=== PATIENT | female | born 1970 | race Hispanic/Latino ===

== ENCOUNTER 2023-11-03 15:38 | Emergency (ER) | payer BC ==
--- NOTE | 2023-11-03 17:19 | EDPHYS ---
Physician Documentation [facility] Name: Alia Benoit Age: 53 yrs Sex: Female : 1970 Arrival Date: 11/03/2023 Time: 15:38 Bed 10 Private MD: ED Physician Sacha Molina HPI: 11/02 17:12 This 53 yrs old Female presents to ER via Ambulatory with complaints of Ear rn Pain. 17:12 The patient presents with pain. rn 17:13 Onset: The symptoms/episode began/occurred today. rn 17:13 Severity of symptoms: At their worst the symptoms were mild in the emergency department rn the symptoms are unchanged. The patient has not experienced similar symptoms in the past. The patient has not recently seen a physician. 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 - Infectious Disease History:: Denies. - Social history:: Smoking status: Patient denies any tobacco usage or history of. - Family history:: not pertinent. - Hospitalizations: : No recent hospitalization is reported. ROS: 17:13 Constitutional: Negative for fever, chills, and weight loss, ENT: Positive for right rn ear pain, sore throat Cardiovascular: Negative for chest pain, palpitations, and edema, Respiratory: Positive for cough Abdomen/GI: Negative for abdominal pain, nausea, vomiting, diarrhea, and constipation, MS/Extremity: Negative for injury and deformity, Skin: Negative for injury, rash, and discoloration, Neuro: Negative for headache, weakness, numbness, tingling, and seizure, Exam: 17:13 Constitutional: This is a well developed, well nourished patient who is awake, alert, rn and in no acute distress. ENT: Mild pharyngeal erythema, no exudate. Normal TM bilaterally Neck: Nontender cervical lymphadenopathy present. No meningismus Respiratory: Lungs have equal breath sounds bilaterally, clear to auscultation and percussion. No rales, rhonchi or wheezes noted. No increased work of breathing, no retractions or nasal flaring. Vital Signs: 15:47 BP 141 / 80; Pulse 69; Resp 16 S; Temp 99(O); Pulse Ox 96% on R/A; Weight 63.5 kg (R); kc6 Height 4 ft. 10 in. (R); Pain 4/10; 15:47 Body Mass Index 29.26 (63.50 kg, 147.32 cm) [facility] 15:47 Pain Scale: Adult kc6 MDM: 15:52 Patient medically screened. rn 17:13 Differential diagnosis: otitis media, foreign body, acute otalgia. Data reviewed: vital rn signs, nurses notes, and as a result, I will discharge patient. Counseling: I had a detailed discussion with the patient and/or guardian regarding the historical points, exam findings, and any diagnostic results supporting the discharge/admit diagnosis, the need for outpatient follow up, to return to the emergency department if symptoms worsen or persist or if there are any questions or concerns that arise at home. Special discussion: I discussed with the patient/guardian in detail that at this point there is no indication for admission to the hospital. It is understood, however, that if the symptoms persist or worsen the patient needs to return immediately for re-evaluation. 17:18 Differential diagnosis: Viral illness, pharyngitis, COVID, flu. rn Administered Medications: No medications were administered Disposition Summary: 11/03/23 17:18 Discharge Ordered Notes: Location: Home rn Problem: new rn Symptoms: have improved rn Condition: Stable rn Diagnosis - Otalgia, right ear rn Followup: rn - With: Private Physician - When: As needed - Reason: Recheck today's complaints, Re-evaluation by your physician Discharge Instructions: - Discharge Summary Sheet rn - Pharyngitis rn Forms: - Medication Reconciliation Form rn - Antibiotic advertising internship - Prescription Opioid Use rn - Patient Portal Instructions rn - Leadership Thank You Letter rn Prescriptions: - Zithromax Z-Won 250 mg Oral Tablet - take 1 tablet ORAL route as directed for 5 days Day 1 - take two (2) tablets rn one time. Day 2, 3, 4 , 5 take one (1) tablet once daily.; 6 tablet; Refills: 0, Product Selection Permitted Signatures: Sacha Molina MD MD rn Campbell, Kaitlyn, RN RN kcArron Corrections: (The following items were deleted from the chart) 15:50 15:48 Allergies: No Known Allergies; kcArron kc6 17:16 17:13 Constitutional: Negative for fever, chills, and weight loss, ENT: Positive for rn right ear pain, sore throat rn
--- NOTE | 2023-11-03 17:19 | ER ---
Nurse's Notes [facility] Name: Alia Benoit Age: 53 yrs Sex: Female : 1970 Arrival Date: 11/03/2023 Time: 15:38 Bed 10 Private MD: Diagnosis: Otalgia, right ear Presentation: 11/02 15:47 Chief complaint: Patient states: right ear and throat pain that started today. states, kc6 "I feel like I'm getting a cold.". Coronavirus screen: At this time, the client does not indicate any symptoms associated with coronavirus-19. Ebola Screen: No symptoms or risks identified at this time. Initial Sepsis Screen: Does the patient meet any 2 criteria? No. Patient's initial sepsis screen is negative. Does the patient have a suspected source of infection? No. Patient's initial sepsis screen is negative. Risk Assessment: Do you want to hurt yourself or someone else? Patient reports no desire to harm self or others. Onset of symptoms was November 03, 2023. 15:47 Method Of Arrival: Ambulatory [facility] 15:47 Acuity: TODD 4 6 Triage Assessment: 15:48 General: Appears in no apparent distress. comfortable, well groomed, well developed, kc6 Behavior is calm, cooperative, appropriate for age. EENT: Reports pain in right ear when swallowing. Neuro: Level of Consciousness is awake, alert, obeys commands, Oriented to person, place, time, situation, Appropriate for age. Respiratory: Airway is patent Trachea midline Respiratory effort is even, unlabored, Respiratory pattern is regular, symmetrical. 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 - Infectious Disease History:: Denies. - Social history:: Smoking status: Patient denies any tobacco usage or history of. - Family history:: not pertinent. - Hospitalizations: : No recent hospitalization is reported. Screenin:48 [facility] ED Fall Risk Assessment (Adult) History of falling in the last 3 months, kc6 including since admission No falls in past 3 months (0 pts) Confusion or Disorientation No (0 pts) Intoxicated or Sedated No (0 pts) Impaired Gait No (0 pts) Mobility Assist Device Used No (0 pt) Altered Elimination No (0 pt) Score/Fall Risk Level 0 - 2 = Low Risk. Abuse screen: Denies threats or abuse. Denies injuries from another. Nutritional screening: No deficits noted. Tuberculosis screening: No symptoms or risk factors identified. Assessment: 15:48 Reassessment: please see triage. kc6 16:50 Reassessment: Patient appears in no apparent distress at this time. No changes from [facility] previously documented assessment. Patient and/or family updated on plan of care and expected duration. Pain level reassessed. Patient is alert, oriented x 3, equal unlabored respirations, skin warm/dry/pink. Vital Signs: 15:47 BP 141 / 80; Pulse 69; Resp 16 S; Temp 99(O); Pulse Ox 96% on R/A; Weight 63.5 kg (R); kc6 Height 4 ft. 10 in. (R); Pain 4/10; 15:47 Body Mass Index 29.26 (63.50 kg, 147.32 cm) [facility] 15:47 Pain Scale: Adult kc ED Course: 15:42 Patient arrived in ED. im 15:48 Triage completed. 6 15:48 Arm band placed on. [facility] 15:48 Patient has correct armband on for positive identification. Bed in low position. Call [facility] light in reach. Side rails up X 1. Adult w/ patient. Pulse ox on. NIBP on. Pillow given. 15:52 Sacha Molina MD is Attending Physician. rn 17:32 Provided Education on: discharge instructions. ap3 17:32 No provider procedures requiring assistance completed. Patient did not have IV access ap3 during this emergency room visit. Administered Medications: No medications were administered Medication: 17:32 VIS not applicable for this client. ap3 Outcome: 17:18 Discharge ordered by . rn 17:32 Discharged to home with family, ap3 17:32 Condition: good 17:32 Discharge instructions given to family, Instructed on discharge instructions, follow up and referral plans. medication usage, Demonstrated understanding of instructions, follow-up care, medications, Prescriptions given X 1, 17:32 Patient left the ED. ap3 Signatures: Sacha Molina MD MD rn Prokisch, Amanda, RN RN ap3 Radha Berry RN RN kc6 Estefanía Madrid Corrections: (The following items were deleted from the chart) 15:50 15:48 Allergies: No Known Allergies; kcArron kc6
[2023-11-03 17:46] VITALS: BP 141/80; TEMP 99; O2SAT 96
== END 2023-11-03 17:32 | disposition home or self-care (01) ==
LOC: ER 15:38
DX: H92.01 Otalgia, right ear (principal); R07.0 Pain in throat
CPT/HCPCS: 99283